=== PATIENT | female | born 1955 | race Two or more races ===

== ENCOUNTER 2016-09-15 13:06 | Inpatient (IN) | payer MEDICAID, OTHER ==
[~2016-09-15] VITALS: Ht 160 cm; Wt 117.9 kg
[~2016-09-15 13:06] MED LIST: DOCU-141 PO; METF-494 PO
--- NOTE | 2016-09-15 13:58 | NUR ---
PT STATES SHE DOES NOT TAKE ANY MEDICATIONS AT THE PRESENT TIME.
[2016-09-15] MEDS ORDERED: IV NORMAL SALINE 1000 ML BAG IV ONE (14:30)
[2016-09-15] MEDS ORDERED: MORPHINE SULFATE 2 MG/1 ML DISP.SYRIN IV ONE (14:30)
[2016-09-15] MEDS ORDERED: ONDANSETRON 4 MG/2 ML VIAL IV ONE (14:30)
[2016-09-15] MEDS ORDERED: PANTOPRAZOLE SODIUM 40 MG VIAL IV ONE (14:30)
[2016-09-15] MEDS ORDERED: MORPHINE SULFATE 4 MG/1 ML DISP.SYRIN ONE ×2 (15:09→22:11)
[2016-09-15] MEDS ORDERED: ONDANSETRON 4 MG/2 ML VIAL ONE (15:10)
[2016-09-15] MEDS ORDERED: PANTOPRAZOLE SODIUM 40 MG VIAL ONE (15:10)
[2016-09-15 15:27] LABS: BASOPHILS # (AUTO) 0.1 K/uL (0.0-8.0); BASOPHILS % (AUTO) 0.5 % (0.0-2.0); EOSINOPHILS % (AUTO) 0.1 % (0.0-7.0); HEMATOCRIT 40.3 % (37-47); HEMOGLOBIN 12.9 G/DL (12.0-16.0); LYMPHOCYTES % (AUTO) 9.8 % (20.5-51.5); MEAN CORPUSCULAR HEMOGLOBIN 24.4 UUG (27.0-31.0); MEAN CORPUSCULAR HGB CONC 32 g/dL (32.0-37.0); MEAN CORPUSCULAR VOLUME 75.9 FL (81.0-99.0); MONOCYTES # (AUTO) 0.4 K/UL (0.1-1.30); MONOCYTES % (AUTO) 3.7 % (0.0-11.0); NEUTROPHILS # (AUTO) 8.8 K/UL (1.8-8.9); NEUTROPHILS % (AUTO) 85.9 % (38.5-71.5); PLATELET COUNT (AUTO) 310 K/UL (150-450); RED BLOOD CELL COUNT(AUTO) 5.31 MIL/UL (4.2-5.4); WHITE BLOOD COUNT (AUTO) 10.3 K/UL (4.0-11.2)
[2016-09-15 15:32] LABS: CREATININE 0.8 mg/dL (0.6-1.3); POTASSIUM 3.8 mmol/L (3.5-5.1)
[2016-09-15 15:37] LABS: BILIRUBIN,DIRECT 0.2 mg/dL (0.0-0.2); BILIRUBIN,TOTAL 0.9 mg/dL (0.2-1.0); TOTAL PROTEIN, SERUM 9.3 g/dL (6.4-8.2)
[2016-09-15] MEDS ORDERED: PIPERACILLIN SODIUM/TAZOBACTAM 3.375 G in IV DEXTROSE 5% 50 ML IV ONE (16:45)
--- NOTE | 2016-09-15 17:15 | NUR ---
Pt. admitted to MED/SURG , under care of [facility] completed
[2016-09-15 18:00] VITALS: BP 158/61
--- NOTE | 2016-09-15 18:00 | NUR ---
received from ER per iban awake alert and oriented, obese female, for c/o abdominal pain, nausea, vomiting since yesterday, but states was given pain med in ER and doesn't have any pain at this time. on /nc, routine admission care rendered, oriented to bed controls and call button- verbalized understanding, initial assessment done, safety measures initiated. Keysha Reddy CODING COORDINATOR aware of admission
[2016-09-15] MEDS ORDERED: Z GUARD REMEDY PASTE 57 GM TUBE TOP PRN (18:45)
[2016-09-15] MEDS ORDERED: MAGNESIUM HYDROXIDE 30 ML LIQUID UDC PO PRN (18:45)
[2016-09-15] MEDS ORDERED: ZOLPIDEM 5 MG TABLET PO PRN (18:45)
[2016-09-15] MEDS ORDERED: HYDROCODONE/APAP 5-325MG TABLET PO PRN (18:45)
[2016-09-15] MEDS ORDERED: ACETAMINOPHEN 325 MG TABLET PO PRN (18:45)
[2016-09-15] MEDS ORDERED: ONDANSETRON 4 MG/2 ML VIAL IV PRN (18:45)
[2016-09-15] MEDS ORDERED: ENOXAPARIN SODIUM 40 MG/0.4 ML DISP.SYRIN SQ SCH (19:00)
[2016-09-15] MEDS: PIPERACILLIN/TAZOBACTAM/D5W 3.375 G in PREMIXED 1 EACH IV SCH (21:50)
[2016-09-15] MEDS ORDERED: MORPHINE SULFATE 2 MG/1 ML DISP.SYRIN IV PRN (22:00)
--- NOTE | 2016-09-15 22:11 | NUR ---
NOTE FOR PHARMACY--REGARDING MORPHINE MD put in new order for patient to receive morphine 2 mg IV. 2 mg IV was all out of stock in the [facility] therefore Charge nurse did an override for Morphine 4 mg IV. 2 mg of this was wasted with witness. However unable to scan. Medication administered.
--- NOTE | 2016-09-15 23:00 | NUR ---
Pt received sitting up in bed, no acute distress noted. Pt reports abdominal pain but has decreased with morphine prn given. Pt has hep lock in right arm, will received NS at 60cc/hr per MD order. Lungs sounds clear through out with auscultation. Pt educated about NPO status. Safety measures maintained.
[2016-09-16] MEDS: IV NS 1000 ML 1,000 ML IV PRN ×2 (00:52→21:12)
[2016-09-16 04:15] VITALS: BP 145/74
--- NOTE | 2016-09-16 05:50 | NUR ---
Pt slept through out the night well. No acute distress noted. Tolerating IVF well. No physical discomfort noted. Safety measures maintained.
[2016-09-16] MEDS: PIPERACILLIN/TAZOBACTAM/D5W 3.375 G in PREMIXED 1 EACH IV SCH ×3 (06:05→21:12)
[2016-09-16] MEDS: PANTOPRAZOLE SODIUM 40 MG TABLET.DR PO SCH (06:09)
[2016-09-16 07:09] LABS: BASOPHILS % (AUTO) 0.2 % (0.0-2.0); EOSINOPHILS # (AUTO) 0.1 K/uL (0.0-0.7); HEMATOCRIT 36.7 % (37-47); LYMPHOCYTES # (AUTO) 1.5 K/UL (0.8-4.8); LYMPHOCYTES % (AUTO) 16.7 % (20.5-51.5); MEAN CORPUSCULAR HEMOGLOBIN 24.9 UUG (27.0-31.0); MEAN CORPUSCULAR HGB CONC 33 g/dL (32.0-37.0); MEAN CORPUSCULAR VOLUME 76.2 FL (81.0-99.0); MONOCYTES # (AUTO) 0.6 K/UL (0.1-1.30); MONOCYTES % (AUTO) 6.3 % (0.0-11.0); NEUTROPHILS # (AUTO) 6.7 K/UL (1.8-8.9); NEUTROPHILS % (AUTO) 75.8 % (38.5-71.5); PLATELET COUNT (AUTO) 276 K/UL (150-450); RED BLOOD CELL COUNT(AUTO) 4.82 MIL/UL (4.2-5.4); WHITE BLOOD COUNT (AUTO) 8.9 K/UL (4.0-11.2)
[2016-09-16 07:27] LABS: MAGNESIUM 2.1 mg/dL (1.8-2.4); PHOSPHOROUS 4.4 mg/dL (2.5-4.9); POTASSIUM 4.1 mmol/L (3.5-5.1)
[2016-09-16] MEDS ORDERED: MORPHINE SULFATE 4 MG/1 ML DISP.SYRIN IV PRN (07:45)
[2016-09-16] MEDS ORDERED: no home meds (09:07)
[2016-09-16] MEDS ORDERED: DIATR MEGLU/DIATRIZOATE SODIUM 120 ML BOTTLE ONE (09:33)
[2016-09-16 11:08] VITALS: BP 117/70
[2016-09-16 15:20] VITALS: BP 138/82
--- NOTE | 2016-09-16 20:00 | NUR ---
PT RECEIVED SITTING UP IN BED, NO ACUTE DISTRESS NOTED. REMAINS ON IVF AT 60ML/HR, TOLERATING WELL. PT EDUCATED ABOUT NPO STATUS. BED IN LOW AND LOCKED POSITION, CALL LIGHT WITHIN REACH.
[2016-09-16 20:32] VITALS: BP 125/73
--- NOTE | 2016-09-16 22:07 | NUR ---
ATTEMPTED TO INSERT NG TUBE ALTHOUGH THERE WAS RESISTANCE AND NOSE BLEED NOTED, PT ALSO REFUSED ANOTHER ATTEMPT OF NG TUBE INSERTION. MD WAS MADE AWARE. Addendum: 09/17/16 at 0642 by MAURO PRABHAKAR RN ATTEMPT WAS MADE IN EACH NOSTRIL.
--- NOTE | 2016-09-17 01:20 | NUR ---
PT CURRENTLY RESTING IN BED, NO ACUTE DISTRESS NOTED. WILL CONTINUE TO MONITOR FOR SAFETY.
[2016-09-17 04:00] VITALS: BP 120/69
[2016-09-17] MEDS: PIPERACILLIN/TAZOBACTAM/D5W 3.375 G in PREMIXED 1 EACH IV SCH ×2 (06:20→13:50)
[2016-09-17] MEDS: PANTOPRAZOLE SODIUM 40 MG TABLET.DR PO SCH (06:21)
--- NOTE | 2016-09-17 06:42 | NUR ---
PT SLEPT WELL THROUGH OUT THE NIGHT. NO ACUTE DISTRESS NOTED. STILL RECEIVING IVF, TOLERATING WELL. SAFETY MEASURES MAINTAINED.
[2016-09-17] MEDS ORDERED: FLEET ENEMA 133 ML BOTTLE RC ONE (10:00)
[2016-09-17 10:25] LABS: BASOPHILS % (AUTO) 0.4 % (0.0-2.0); EOSINOPHILS # (AUTO) 0.1 K/uL (0.0-0.7); EOSINOPHILS % (AUTO) 0.9 % (0.0-7.0); HEMATOCRIT 35.2 % (37-47); HEMOGLOBIN 11.3 G/DL (12.0-16.0); LYMPHOCYTES # (AUTO) 2.1 K/UL (0.8-4.8); LYMPHOCYTES % (AUTO) 21.5 % (20.5-51.5); MEAN CORPUSCULAR HEMOGLOBIN 24.4 UUG (27.0-31.0); MEAN CORPUSCULAR HGB CONC 32 g/dL (32.0-37.0); MEAN CORPUSCULAR VOLUME 75.8 FL (81.0-99.0); MONOCYTES # (AUTO) 0.7 K/UL (0.1-1.30); MONOCYTES % (AUTO) 7.6 % (0.0-11.0); NEUTROPHILS # (AUTO) 6.8 K/UL (1.8-8.9); NEUTROPHILS % (AUTO) 69.6 % (38.5-71.5); PLATELET COUNT (AUTO) 307 K/UL (150-450); RED BLOOD CELL COUNT(AUTO) 4.64 MIL/UL (4.2-5.4); WHITE BLOOD COUNT (AUTO) 9.6 K/UL (4.0-11.2)
[2016-09-17 10:56] LABS: BILIRUBIN,TOTAL 0.9 mg/dL (0.2-1.0); CREATININE 1.3 mg/dL (0.6-1.3); MAGNESIUM 2.3 mg/dL (1.8-2.4); PHOSPHOROUS 4.7 mg/dL (2.5-4.9); POTASSIUM 3.5 mmol/L (3.5-5.1)
[2016-09-17 11:16] LABS: THYROID STIMULATING HORMONE 3.057 mIU/mL (0.358-3.740)
--- NOTE | 2016-09-17 11:16 | NUR ---
after administering fleet enema pt was able to have BM. Stool is brown color, consistency is normal.
[2016-09-17 11:24] VITALS: BP_SYST 97; BP_DIAS 44; BP_DIAS 74
--- NOTE | 2016-09-17 11:48 | NUR ---
NEW ORDER FOR KUB PER JENIOS
[2016-09-17] MEDS: IV NS 1000 ML 1,000 ML IV PRN (13:50)
[2016-09-17 15:00] LABS: *BLOOD, URINE 1+ (NEGATIVE); *CLARITY,URINE CLEAR (CLEAR); *COLOR,URINE YELLOW (YELLOW); *KETONES,URINE NEGATIVE (NEGATIVE); *PROTEIN,URINE TRACE (NEGATIVE); *UROBILINOGEN,URINE 0.2 E.U./dl (NORMAL); LEUKOCYTE ESTERASE ,URINE NEGATIVE (NEGATIVE); NITRITE, URINE NEGATIVE (NEGATIVE); PH,URINE 5.5 (5.0-8.0); UGLUCOSE NEGATIVE (NEGATIVE)
[2016-09-17 15:03] LABS: *BILIRUBIN,URIN 1+ (NEGATIVE)
[2016-09-17 15:11] LABS: WBC,URINE 0-3 /HPF (0-3)
[2016-09-17] MEDS ORDERED: POTASSIUM CHLORIDE 20 MEQ in IV 1/2NS 1000 ML 1,000 ML IV PRN (15:15)
[2016-09-17 15:23] VITALS: BP 105/54
[2016-09-17] MEDS ORDERED: ACET325T53 PO (16:49)
--- NOTE | 2016-09-17 17:06 | NUR ---
read results of kub to dr. schmitt. Per Dr. Schmitt "discharge the pt and provide her with my ofice number". Office number provided of Dr. Schmitt. Advised MILTON Cox about Dr. Schmitt orders, per Kenny Wood "put order for clear liquids then as tolerated. Also, provide the patient with Dr. Wu phone number in regards of adrenal nodule and let the pt follow up with PCP and get blood work done within couple of days". Contacts are provided to the pt, diet order noted. Pt is informed that after receiving the clear liquid diet if tolerated - pt can be d/c home.
--- NOTE | 2016-09-17 17:48 | NUR ---
pt was able to tolerate liquid diet well, no nausea or vomiting reported. Provided with pudding, pt is tolerating well as well. Patient states "My son can only pick me up at 9pm". D/C paperwork is done.
--- NOTE | 2016-09-17 17:55 | NUR ---
pt refused IV fluids since "being discharged anyway".
--- NOTE | 2016-09-17 19:20 | NUR ---
pt is laying in bed comfortably. no s/s of respiratory distress noted. no pain noted. all safety needs are met. iv intact/patent. report is given
--- NOTE | 2016-09-17 19:41 | NUR ---
To be discharged tonight. Received patient awake & alert dressing up, patient stated she's just waiting for her son to pick her up. No SOB denies abdominal pain. Heplock discontinued/removed, belonging checklist done & completed, no items were missing. Provided jello per patient request.
--- NOTE | 2016-09-17 21:00 | NUR ---
Escorted down via wheelchair, no acute resp distress. Discharged.
== END 2016-09-17 20:50 | disposition home or self-care (01) | DRG 254 ==
LOC: ER 13:06 → MED 17:32
PROVIDERS: ADMIT Nurse Practitioner Acute Care; ATTEND Nurse Practitioner Acute Care
DX: K43.6 Other and unspecified ventral hernia with obstruction, without gangrene (principal); N17.0 Acute kidney failure with tubular necrosis; E87.1 Hypo-osmolality and hyponatremia; E27.8 Other specified disorders of adrenal gland; M41.9 Scoliosis, unspecified; E11.65 Type 2 diabetes mellitus with hyperglycemia; Z68.42 Body mass index [BMI] 45.0-49.9, adult; K76.0 Fatty (change of) liver, not elsewhere classified; D50.9 Iron deficiency anemia, unspecified; E66.01 Morbid (severe) obesity due to excess calories; K21.9 Gastro-esophageal reflux disease without esophagitis; Z88.1 Allergy status to other antibiotic agents; Z88.2 Allergy status to sulfonamides; Z90.49 Acquired absence of other specified parts of digestive tract; K59.00 Constipation, unspecified
CPT/HCPCS: 36415; 70030-TC; 71010; 74000; 74250; 83690; 83735; 84100; 84443; 85025; 85730; 87086; 93005; A4663; C9113; J1650; J2270; J2405; J2543; J3480; J3490; J7030; J7060; Q9963